=== PATIENT | male | born 1965 | race Two or more races ===

== ENCOUNTER 2022-09-01 13:38 | Emergency (ER) | payer SELFPAY ==
[2022-09-01] MEDS ORDERED: Lidocaine 1% 10 ML MDV INJECT ONE (14:19)
== END 2022-09-01 15:40 | disposition home or self-care (01) ==
LOC: JD.ED 13:38
DX: S61.210A Laceration without foreign body of right index finger without damage to nail, initial encounter (principal); E11.9 Type 2 diabetes mellitus without complications; Z79.84 Long term (current) use of oral hypoglycemic drugs; W26.8XXA Contact with other sharp object(s), not elsewhere classified, initial encounter
CPT/HCPCS: 12002; 99282; J3490